=== PATIENT | male | born 1985 | race African-American/Black ===

== ENCOUNTER 2019-03-21 00:10 | Emergency (ER) | payer OTHER ==
[~2019-03-21] VITALS: Ht 170.2 cm; Wt 75.0 kg
[2019-03-21 00:17] VITALS: BP 141/89
== END 2019-03-21 02:06 | disposition home or self-care (01) ==
LOC: EMS 00:14
DX: Z02.79 Encounter for issue of other medical certificate (principal); R55 Syncope and collapse
CPT/HCPCS: 93005